=== PATIENT | female | born 1950 | race Caucasian/White ===

== ENCOUNTER → 2023-09-23 16:19 | Outpatient (REF) | payer MEDICARE, OTHER, SELFPAY | LOC: RAD 16:19 | PROVIDERS: ATTENDING PHYSICIAN Orthopaedic Surgery; FAMILY PHYSICIAN Family Medicine | DX: S72.001A Fracture of unspecified part of neck of right femur, initial encounter for closed fracture (principal) | CPT/HCPCS: 73700 ==

== ENCOUNTER → 2023-09-28 06:26 | Day surgery (SDC) | payer MEDICARE, OTHER, SELFPAY | LOC: GI 06:26 | PROVIDERS: ATTENDING PHYSICIAN Internal Medicine Gastroenterology; FAMILY PHYSICIAN Nurse Practitioner Family | DX: K22.89 Other specified disease of esophagus (principal); K31.819 Angiodysplasia of stomach and duodenum without bleeding; K92.1 Melena | CPT/HCPCS: 43270 ==

== ENCOUNTER → 2023-09-30 12:54 | Outpatient (REF) | payer MEDICARE, OTHER, SELFPAY | LOC: DHCBC MAIN 12:54 | PROVIDERS: ATTENDING PHYSICIAN Internal Medicine Cardiovascular Disease; FAMILY PHYSICIAN Family Medicine | DX: I45.2 Bifascicular block (principal); I51.7 Cardiomegaly; I25.10 Atherosclerotic heart disease of native coronary artery without angina pectoris | CPT/HCPCS: 93306 ==

== ENCOUNTER 2024-05-16 10:48 | Outpatient (RCR) | payer MEDICARE, OTHER, SELFPAY ==
[2024-05-16 10:55] VITALS: BP 135/84
[2024-05-16] MEDS: PROLIA 60 MG SC (11:26)
== END 2024-05-16 13:16 | disposition home or self-care (01) ==
LOC: OID 10:48
PROVIDERS: ATTENDING PHYSICIAN Internal Medicine; FAMILY PHYSICIAN Family Medicine
DX: M81.0 Age-related osteoporosis without current pathological fracture (principal)
CPT/HCPCS: 96372; J0897

== ENCOUNTER → 2024-08-10 11:35 | Outpatient (REF) | payer MEDICARE, OTHER, SELFPAY ==
[2024-08-10 11:40] LABS: % Basophils 0.8 % (0-2); % Lymphocytes 24.5 % (20.5-51.1); % Monocytes 9.9 % (1.7-9.3); % Neutrophils 60.8 % (42.2-75.2); Absolute Eosinophils 0.2 10^3/uL (0-0.7); Absolute Lymphocytes 1.2 10^3/uL (1.2-3.4); Absolute Monocytes 0.5 10^3/uL (0.1-0.6); Absolute Neutrophils 2.9 10^3/uL (1.4-6.5); Hematocrit 34.4 % (37.0-47.0); Hemoglobin 10.9 g/dL (12.0-16.0); Mean Corp Hgb Conc. 31.7 g/dL (33.0-37.0); Mean Corpuscular Hgb 31.2 pg (27.0-31.0); Mean Corpuscular Volume 98.6 fL (81.0-99.0); Mean Platelet Volume 8.4 fL (7.4-10.4); Platelet Count 299 10^3/uL (130-400); Red Blood Cell Count 3.49 10^6/uL (4.20-5.40); Red Cell Dist. Width 12.9 % (11.5-14.5); White Blood Cell Count 4.8 10^3/uL (4.8-10.8)
== END ==
LOC: OIDL 11:35
PROVIDERS: ATTENDING PHYSICIAN Internal Medicine Hematology & Oncology
DX: D50.9 Iron deficiency anemia, unspecified (principal)
CPT/HCPCS: 82728; 85025

== ENCOUNTER → 2024-09-29 15:18 | Outpatient (REF) | payer MEDICARE, OTHER, SELFPAY | LOC: WDC 15:18 | PROVIDERS: ATTENDING PHYSICIAN Internal Medicine | DX: Z12.31 Encounter for screening mammogram for malignant neoplasm of breast (principal) | CPT/HCPCS: 77063; 77067 ==

== ENCOUNTER 2024-11-08 14:08 | Outpatient (RCR) | payer MEDICARE, OTHER, SELFPAY ==
[2024-11-08 14:32] VITALS: BP 139/50
[2024-11-08] MEDS: PROLIA 60 MG SC (14:38)
== END 2024-11-08 15:10 | disposition home or self-care (01) ==
LOC: OID 14:08
PROVIDERS: ATTENDING PHYSICIAN Internal Medicine; FAMILY PHYSICIAN Family Medicine
DX: M81.0 Age-related osteoporosis without current pathological fracture (principal)
CPT/HCPCS: 96372; J0897

== ENCOUNTER → 2024-11-21 10:29 | Outpatient (REF) | payer MEDICARE, OTHER, SELFPAY | LOC: HWRAD 10:29 | PROVIDERS: ATTENDING PHYSICIAN Internal Medicine Cardiovascular Disease; FAMILY PHYSICIAN Internal Medicine | DX: I28.8 Other diseases of pulmonary vessels (principal) | CPT/HCPCS: 71250 ==

== ENCOUNTER 2024-12-21 06:28 | Day surgery (SDC) | payer MEDICARE, OTHER, SELFPAY | END 2024-12-21 15:18 | disposition home or self-care (01) | LOC: GI 06:28 | PROVIDERS: ATTENDING PHYSICIAN Internal Medicine Gastroenterology | DX: D50.9 Iron deficiency anemia, unspecified (principal); K44.9 Diaphragmatic hernia without obstruction or gangrene; K31.811 Angiodysplasia of stomach and duodenum with bleeding; K22.9 Disease of esophagus, unspecified; B37.81 Candidal esophagitis | CPT/HCPCS: 43255; 88305; 87220 ==

== ENCOUNTER 2025-04-01 00:22 | Emergency (ER) | payer MEDICARE, OTHER, SELFPAY ==
[2025-04-01 00:24] VITALS: BP 110/62
[2025-04-01 00:44] VITALS: BMI 18.7
[2025-04-01 01:45] VITALS: BP 110/71
[2025-04-01] MEDS: TORADOL 15 MG IM (01:47)
--- NOTE | 2025-04-01 02:18 | ED.GENMED ---
History of Present Illness
<VERÓNICA Brown - Last Filed: 04/01/25 02:25>
General
Chief Complaint: Musculo-Skeletal Complaint
Source: patient and spouse
Exam Limitations: none
Time Seen by Provider: 04/01/25 01:23
Nursing documentation reviewed up to this point in time: agreed with
History of Present Illness
History of Present Illness:
Patient is a 74 year old female with PMH of chronic back pain, who presents to the ED for evaluation of left ankle pain. Patient states she was walking up the stairs when she 'twisted' her ankle. She denies falling, striking head, or LOC. There is
swelling to the lateral aspect of the foot. She was out for dinner and was unable to bear weight as the evening progressed. Patient reports taking Morphine XR and Motrin around 2300 last evening with improvement in the pain.
Past History
<VERÓNICA Brown - Last Filed: 04/01/25 02:25>
Past History
ED Past Medical History: GERD and Other (Anemia, Ovarian cyst, GAVE Syndrome, bee sting allergy, chronic low back pain); Negative Arrthythmia or Asthma
ED Past Surgical History: Gynecological (Breast biopsy), Orthopedic (Bilateral foot surgery 1980; lumbar rhizotomy) and Other (Esophagogastroduodenoscopy with fundoplication)
Social History
Tobacco: Non-smoker
Alcohol: Daily (1 glass of wine nightly)
Drug: None
Personal:
Living: with family
Employment: Employed
Family History
Family History: Negative Diabetes, Hypertension or CAD
Review of Systems
<VERÓNICA Brown - Last Filed: 04/01/25 02:25>
Review of Systems
Allergies reviewed?: Yes
All Other Systems: ROS reviewed and negative except as documented in HPI and ROS
Constitutional: Reports no symptoms
EENT: Reports no symptoms
Respiratory: Reports no symptoms
Cardiac: Reports no symptoms
ABD/GI: Reports no symptoms
Musculoskeletal: Reports joint pain (left ankle), joint swelling (left ankle) and back pain (chronic)
Neurological: Reports no symptoms
Phy Exam
<VERÓNICA Brown - Last Filed: 04/01/25 02:25>
General Physical Exam
General Presentation: well appearing
General Skin: warm and dry
General Habitus: normal
General Mental: alert
Cardiovascular Exam
Cardiovascular Exam: regular rate/rhythm
Pulmonary Exam
Pulmonary Exam: lungs clear and no respiratory distress
Oxygen Status: room air
Cough: no cough
Musculoskeletal Exam
Musculoskeletal Exam: joint swelling
Course
<VERÓNICA Brown - Last Filed: 04/01/25 02:25>
Orders/Labs/Results
Orders:
Orders
04/01/25 00:26
Ankle, left 3 view CR [CR Ankle - Left Min 3 Views ] Urgent
Comment:
Reason For Exam: FALL
04/01/25 00:52
Foot, Left 3 View [CR Foot - Left Min 3 Views] Urgent
Comment:
Reason For Exam: left foot pain, swelling
04/01/25 01:39
Ice Pack-Treatment DIRECTED
Location: LEFT LATERAL FOOT/ANKLE
Ortho Boot Left- Treatment ONCE
Short or tall?: Tall
Ketorolac [Toradol] 15 mg IM NOW STA
Vital Signs
Initial and Last Documented VS:
Initial Vital Signs
Temp Pulse Resp BP Pulse Ox
98 F 78 18 110/62 98
04/01/25 00:24 04/01/25 00:24 04/01/25 00:24 04/01/25 00:24 04/01/25 00:24
Last Documented Vital Signs
Temp Pulse Resp BP Pulse Ox
98 F 71 17 110/71 93
04/01/25 00:24 04/01/25 01:45 04/01/25 01:45 04/01/25 01:45 04/01/25 02:18
<Mari Allen DO - Last Filed: 04/01/25 07:42>
Orders/Labs/Results
Orders:
Orders
04/01/25 00:26
Ankle, left 3 view CR [CR Ankle - Left Min 3 Views ] Urgent
Comment:
Reason For Exam: FALL
04/01/25 00:52
Foot, Left 3 View [CR Foot - Left Min 3 Views] Urgent
Comment:
Reason For Exam: left foot pain, swelling
04/01/25 01:39
Ice Pack-Treatment DIRECTED
Location: LEFT LATERAL FOOT/ANKLE
Ortho Boot Left- Treatment ONCE
Short or tall?: Tall
Ketorolac [Toradol] 15 mg IM NOW STA
Vital Signs
Initial and Last Documented VS:
Initial Vital Signs
Temp Pulse Resp BP Pulse Ox
98 F 78 18 110/62 98
04/01/25 00:24 04/01/25 00:24 04/01/25 00:24 04/01/25 00:24 04/01/25 00:24
Last Documented Vital Signs
Temp Pulse Resp BP Pulse Ox
98 F 71 17 110/71 93
04/01/25 00:24 04/01/25 01:45 04/01/25 01:45 04/01/25 01:45 04/01/25 02:18
<VERÓNICA Brown - Last Filed: 04/01/25 02:25>
MDM/Problems Addressed
Differential Diagnosis Includes:
ankle sprain/strain/fracture
MDM/Problems Addressed:
Left ankle pain
Chronic conditions affecting care:
Ankle pain
<VERÓNICA Brown - Last Filed: 04/01/25 02:25>
*Pulse Oximetry
SaO2: 93
Oxygen Mode of Delivery: Room air
Patient hypoxic: no
*Critical Care Note
Total Time (30-74mins, 75-104mins- exclusive of procedures): Not Applicable
<Mari Allen DO - Last Filed: 04/01/25 07:42>
*Radiology
Radiology exam reviewed: preliminary read by ED provider (Left ankle, left foot x-ray negative for fracture.)
ED Attending Note
<VERÓNICA Brown - Last Filed: 04/01/25 02:25>
-
Portions of this chart may have been created with voice recognition software.� Occasional wrong word or��sound alike� substitutions may have occurred due to the inherent limitations of voice recognition software.
<Mari Allen DO - Last Filed: 04/01/25 07:42>
ED Attending Note
Patient seen and examined by attending physician: Yes
I performed the substantive portion of visit, reviewed & personally made and approve the management plan that is documented in note by myself or ASHLEY.: Yes
ED Attending Note:
This is a 74-year-old woman who resides at home with her . She has history of chronic low back pain, narcotic dependent. She suffered a trip and fall a few days ago, no head injury, no specific injury and has been ambulatory since then.
This afternoon while walking up the steps she twisted her left ankle causing some mild pain left lateral ankle, left lateral foot but able to ambulate throughout the afternoon and evening but has noted increasing pain, stiffness left lateral foot,
more so tonight with inability to bear weight.
She follows with pain management. Prescribed oxycodone IR 5 mg 120/month. Recently started on MS Contin 15 mg twice daily. With initiation of MS Contin, patient states she was unaware that she can continue her oxycodone for as needed breakthrough
pain.
According to PDMP MS Contin 15 mg #60 filled on March 12, 2025. Oxy IR 5 mg #120 filled on March 18, 2025. She did take 1 ibuprofen earlier this evening but admits that she has been told to avoid NSAIDs as she has a history of upper GI
bleed/Gastric antral vascular ectasia.
74-year-old woman, thin build, appears her stated age. She is bright and alert, pleasant, appears in no acute distress. is accompanying.
HEENT: Head is normocephalic, atraumatic.
Lungs: Clear to auscultation. No respiratory distress.
Abdomen is soft, no appreciable tenderness.
Extremities: Left lateral foot has very mild ecchymosis lateral proximal aspect with mild to moderate local tenderness to palpation at the proximal 5th and 4th metatarsals. There is no crepitus. There is very mild tenderness lateral ankle. No
ankle swelling. Full ankle range of motion with increased pain with inversion and eversion.
History and exam concerning for left ankle sprain/strain. Other consideration is fracture proximal 4th/5th metatarsals
X-rays of left ankle/left foot obtained. Reviewed by myself. There is no evidence of fracture.
Patient will be placed in an Ortho boot and provided with ice. Recommend importance of ice, elevation.
She does have a walker at home and recommend she utilize this for partial weightbearing.
Recommend she continue her opioid medications including her twice daily MS Contin and as needed Oxy IR for breakthrough pain.
Will refer to orthopedics for follow-up.
Discharge Plan
Departure
Patient Disposition: Home (Routine Discharge)
Date of Disposition: 04/01/25
Time of Disposition: 02:18
Patient with high blood pressure during this ER visit?: No
Condition: Good
Discharge Problem:
Acute left lateral ankle sprain
Instructions: Walking Boot, Ankle sprain - ED (DC), Foot sprain - ED (DC)
Prescriptions:
No Action
acetaminophen [Tylenol Extra Strength] 500 MG tablet
1,000 mg PO Q8HPRN PRN (Reason: pain)
lorazepam 1 MG tablet
1 mg PO DAILYPRN PRN (Reason: anxiety)
zolpidem 10 MG tablet
10 mg PO HSPRN PRN (Reason: insomnia)
rosuvastatin 5 MG tablet
5 mg PO QPM
fluoxetine [Prozac] 40 mg Capsule
40 mg PO DAILY
verapamil 40 mg Tablet
40 mg PO DAILY
bupropion HCl 150 mg Tablet Extended Release 24 Hr
150 mg PO DAILY
oxycodone 5 mg Tablet
5 mg PO Q6H PRN (Reason: pain)
Prolia 60 mg/mL Syringe
60 mg SC [id number]
Patient Comments:
last dose 11/08/24
Referrals:
Derek Amin MD [Active, Orthopedics] - Call in 1-3 days for appt
Lawrence Mas MD [Family Provider, Internal Medicine] - Call in 1-3 days for appt
Interventions
Interventions:
*Risk Screen - Suicide Last Done: 04/01/25 00:24
*General Assessment Last Done: 04/01/25 00:45
*Neglect/Abuse Screening Last Done: 04/01/25 00:24
*ED- Fall Risk Assessment Last Done: 04/01/25 00:45
*ED COVID-19 Vaccine History Last Done: 04/01/25 00:45
*Nursing Disposition Last Done: 04/01/25 02:29
ED-Musculoskeletal Assessment Last Done: 04/01/25 00:47
Discharge Date and Time
Discharge Date/Time: 04/01/25 02:30
Print Language: SAMOAN
== END 2025-04-01 02:30 | disposition home or self-care (01) ==
LOC: EMR 00:22
PROVIDERS: EMERGENCY PHYSICIAN Emergency Medicine; FAMILY PHYSICIAN Internal Medicine
DX: S93.402A Sprain of unspecified ligament of left ankle, initial encounter (principal); S90.32XA Contusion of left foot, initial encounter; M79.89 Other specified soft tissue disorders; X50.1XXA Overexertion from prolonged static or awkward postures, initial encounter; Y93.01 Activity, walking, marching and hiking; M54.50 Low back pain, unspecified; G89.29 Other chronic pain; F11.20 Opioid dependence, uncomplicated; D64.9 Anemia, unspecified; K21.9 Gastro-esophageal reflux disease without esophagitis; K31.819 Angiodysplasia of stomach and duodenum without bleeding; Z88.2 Allergy status to sulfonamides; Z91.030 Bee allergy status
CPT/HCPCS: 99284; 29515; 96372; 73610; 73630

== ENCOUNTER → 2025-04-03 10:11 | Outpatient (REF) | payer MEDICARE, OTHER, SELFPAY | LOC: RAD 10:11 | PROVIDERS: ATTENDING PHYSICIAN Internal Medicine | DX: M25.562 Pain in left knee (principal); R07.89 Other chest pain; M25.111 Fistula, right shoulder; M25.561 Pain in right knee | CPT/HCPCS: 71046; 71120; 73030; 73564 ==

== ENCOUNTER → 2025-07-06 11:01 | Outpatient (REF) | payer MEDICARE, OTHER, SELFPAY | LOC: RAD 11:01 | PROVIDERS: ATTENDING PHYSICIAN Internal Medicine | DX: M81.0 Age-related osteoporosis without current pathological fracture (principal); Z12.31 Encounter for screening mammogram for malignant neoplasm of breast | CPT/HCPCS: 77080 ==